=== PATIENT | female | born 1965 | race Caucasian/White ===

== ENCOUNTER 2023-05-03 23:35 | Emergency (ER) | payer SELFPAY ==
[~2023-05-03] VITALS: Ht 157.5 cm; Wt 72.1 kg
[2023-05-03 23:44] VITALS: TEMP 97.9
[2023-05-03] MEDS ORDERED: ONDANSETRON HCL/PF 4 MG/2 ML VIAL ONE (23:56)
[2023-05-03] MEDS ORDERED: MORPHINE SULFATE INJ 4 MG/ML DISP.SYRIN ONE (23:56)
[2023-05-04 00:03] LABS: BASOPHILS % (AUTO) 0.2 % (0.0-2.0); HEMATOCRIT 37 % (33-45); HEMOGLOBIN 12.9 g/dL (11.5-14.8); LYMPHOCYTES # (AUTO) 0.8 K/uL (0.8-4.8); LYMPHOCYTES % (AUTO) 9.2 % (20.0-44.0); MEAN CORPUSCULAR HEMOGLOBIN 31 PG (26.0-33.0); MEAN CORPUSCULAR HGB CONC 35 g/dl (31.0-36.0); MEAN CORPUSCULAR VOLUME 89 fL (82-100); MONOCYTES # (AUTO) 0.1 K/uL (0.1-1.30); MONOCYTES % (AUTO) 1.4 % (2.0-12.0); NEUTROPHILS # (AUTO) 7.8 K/uL (1.8-8.9); NEUTROPHILS % (AUTO) 89.2 % (43.0-81.0); PLATELET COUNT (AUTO) 163 K/uL (150-450); RED BLOOD CELL COUNT(AUTO) 4.17 MIL/uL (4.0-5.2); RED CELL DISTRIBUTION WIDTH 12.6 % (11.5-15.0); WHITE BLOOD COUNT (AUTO) 8.8 K/uL (4.3-11.0)
[2023-05-04] MEDS: MORPHINE SULFATE INJ 2 MG/ML DISP.SYRIN IV ONE (00:04)
[2023-05-04] MEDS: ONDANSETRON HCL/PF 4 MG/2 ML VIAL IV ONE (00:04)
[2023-05-04 00:11] LABS: CALCIUM, SERUM 9.3 mg/dL (8.5-10.1); CREATININE 0.9 mg/dL (0.6-1.3); POTASSIUM 4.2 mmol/L (3.5-5.1)
[2023-05-04] MEDS ORDERED: ONDA4TAB5 PO (02:06)
[2023-05-04 03:23] VITALS: BP 101/71; O2SAT 98
== END 2023-05-04 03:25 | disposition home or self-care (01) ==
LOC: ER 23:38
DX: R51.9 Headache, unspecified (principal); R11.2 Nausea with vomiting, unspecified
CPT/HCPCS: 99285; 70450; 71046; 74018; 70360; 85025; 80048; 36415; 84484; 96374; 96375; J2270; J2405

== ENCOUNTER 2023-05-19 22:48 | Emergency (ER) | payer MEDICAID ==
[~2023-05-19] VITALS: Ht 162.6 cm; Wt 70.3 kg
[~2023-05-19 22:48] MED LIST: ONDA4TAB5 PO
[2023-05-19] MEDS ORDERED: KETOROLAC TROMETHAMINE INJ 30 MG/ML VIAL ONE (23:33)
[2023-05-19] MEDS: KETOROLAC TROMETHAMINE INJ 60 MG/2 ML VIAL IM ONE (23:35)
[2023-05-20 02:18] VITALS: BP 123/73; TEMP 97; O2SAT 100
== END 2023-05-20 02:19 | disposition home or self-care (01) ==
LOC: ER 22:51
DX: M25.562 Pain in left knee (principal); Z79.899 Other long term (current) drug therapy
CPT/HCPCS: 99283; 96372; 73564; J1885

== ENCOUNTER 2024-04-24 22:37 | Inpatient (IN) | payer BC, MEDICAID, OTHER ==
[~2024-04-24] VITALS: Ht 152.4 cm; Wt 68.9 kg
[2024-04-24 23:26] VITALS: O2SAT 97
[2024-04-24] MEDS ORDERED: ACETAMINOPHEN ES 500 MG TABLET ONE (23:51)
[2024-04-24] MEDS ORDERED: METOCLOPRAMIDE HCL 10 MG/2 ML VIAL ONE (23:51)
[2024-04-24] MEDS ORDERED: IV NS 0.9% 250 ML IV ONE (23:52)
[2024-04-24] MEDS: IV NS 0.9% 1,000 ML BAG IV ONE (23:52)
[2024-04-24] MEDS: METOCLOPRAMIDE HCL 10 MG/2 ML VIAL IV ONE (23:52)
[2024-04-24] MEDS ORDERED: IOHEXOL-350 100 ML VIAL IV ONE (23:52)
[2024-04-24] MEDS: ACETAMINOPHEN ES 500 MG TABLET PO ONE (23:53)
[2024-04-25 00:27] LABS: BASOPHILS % (AUTO) 0.6 % (0.0-2.0); EOSINOPHILS # (AUTO) 0.3 K/uL (0.0-0.7); EOSINOPHILS % (AUTO) 5.1 % (0.0-6.0); HEMATOCRIT 37 % (33-45); HEMOGLOBIN 12.9 g/dL (11.5-14.8); LYMPHOCYTES # (AUTO) 2.8 K/uL (0.8-4.8); LYMPHOCYTES % (AUTO) 51.1 % (20.0-44.0); MEAN CORPUSCULAR HEMOGLOBIN 32 PG (26.0-33.0); MEAN CORPUSCULAR HGB CONC 35 g/dl (31.0-36.0); MEAN CORPUSCULAR VOLUME 92 fL (82-100); MONOCYTES # (AUTO) 0.3 K/uL (0.1-1.30); MONOCYTES % (AUTO) 6.2 % (2.0-12.0); PLATELET COUNT (AUTO) 121 K/uL (150-450); RED BLOOD CELL COUNT(AUTO) 4.05 MIL/uL (4.0-5.2); RED CELL DISTRIBUTION WIDTH 12.9 % (11.5-15.0); WHITE BLOOD COUNT (AUTO) 5.5 K/uL (4.3-11.0)
[2024-04-25 00:40] LABS: CREATININE 0.8 mg/dL (0.6-1.3); POTASSIUM 3.9 mmol/L (3.5-5.1)
[2024-04-25 00:47] LABS: ALBUMIN 3.8 g/dL (3.4-5.0); BILIRUBIN,DIRECT 0.1 mg/dL (0.0-0.2); BILIRUBIN,TOTAL 0.4 mg/dL (0.2-1.0); TOTAL PROTEIN, SERUM 7.5 g/dL (6.4-8.2)
[2024-04-25] MEDS ORDERED: MECLIZINE HCL 25 MG TABLET ONE (01:19)
[2024-04-25] MEDS: MECLIZINE HCL 25 MG TABLET PO ONE (01:25)
[2024-04-25] MEDS ORDERED: hydrALAZINE HCL IV 20 MG VIAL IV PRN (03:00)
[2024-04-25] MEDS ORDERED: ONDANSETRON HCL/PF 4 MG/2 ML VIAL IVP PRN (03:00)
[2024-04-25] MEDS ORDERED: MORPHINE SULFATE INJ 2 MG/ML DISP.SYRIN IV PRN (03:00)
[2024-04-25] MEDS ORDERED: ACETAMINOPHEN 325 MG TABLET PO PRN (03:00)
[2024-04-25 03:50] VITALS: BP 108/78; TEMP 97.5; O2SAT 100
[2024-04-25 08:00] VITALS: BP 104/70; TEMP 97.7; O2SAT 98
[2024-04-25] MEDS ORDERED: ACET-73 PO (09:22)
[2024-04-25] MEDS: HEPARIN SODIUM, PORCINE 5000 UNITS/1 ML VIAL SQ SCH (09:33)
[2024-04-25] MEDS ORDERED: MECLIZINE HCL 25 MG TABLET PO SCH (21:00)
== END 2024-04-25 14:40 | disposition home or self-care (01) | DRG 111 ==
LOC: ER 22:42 → TELE 04-25 02:54 → MED 04-25 03:53
DX: H81.10 Benign paroxysmal vertigo, unspecified ear (principal); D69.6 Thrombocytopenia, unspecified; Z98.2 Presence of cerebrospinal fluid drainage device; Z86.69 Personal history of other diseases of the nervous system and sense organs; R79.89 Other specified abnormal findings of blood chemistry
CPT/HCPCS: 36415; 70450-TC; 70496-TC; 70498-TC; 80048-TC; 80076-TC; 85025-TC; G0378; J1644; J2765; J7030; J7050; J8597; Q9967

== ENCOUNTER 2024-06-13 00:36 | Emergency (ER) | payer BC ==
[~2024-06-13] VITALS: Ht 152.4 cm; Wt 63.5 kg
[~2024-06-13 00:36] MED LIST changes: +ACET-73 PO; -ONDA4TAB5 PO
[2024-06-13] MEDS: MORPHINE SULFATE INJ 2 MG/ML DISP.SYRIN IV ONE (02:00)
[2024-06-13] MEDS: ONDANSETRON HCL/PF 4 MG/2 ML VIAL IVP ONE (02:00)
[2024-06-13] MEDS: IV NS 0.9% 1,000 ML BAG IV ONE (02:00)
[2024-06-13] MEDS ORDERED: MORPHINE SULFATE INJ 4 MG/ML DISP.SYRIN ONE (02:12)
[2024-06-13] MEDS ORDERED: ONDANSETRON HCL/PF 4 MG/2 ML VIAL ONE (02:12)
[2024-06-13 02:27] LABS: CALCIUM, SERUM 9.1 mg/dL (8.5-10.1); CREATININE 0.8 mg/dL (0.6-1.3); POTASSIUM 3.7 mmol/L (3.5-5.1)
[2024-06-13 02:40] LABS: ALBUMIN 3.6 g/dL (3.4-5.0); BASOPHILS % (AUTO) 0.3 % (0.0-2.0); BILIRUBIN,DIRECT 0.2 mg/dL (0.0-0.2); BILIRUBIN,TOTAL 0.7 mg/dL (0.2-1.0); EOSINOPHILS # (AUTO) 0.2 K/uL (0.0-0.7); EOSINOPHILS % (AUTO) 1.6 % (0.0-6.0); HEMATOCRIT 40 % (33-45); HEMOGLOBIN 13.4 g/dL (11.5-14.8); LYMPHOCYTES # (AUTO) 2.2 K/uL (0.8-4.8); LYMPHOCYTES % (AUTO) 19.8 % (20.0-44.0); MEAN CORPUSCULAR HEMOGLOBIN 31 PG (26.0-33.0); MEAN CORPUSCULAR HGB CONC 34 g/dl (31.0-36.0); MEAN CORPUSCULAR VOLUME 91 fL (82-100); MONOCYTES # (AUTO) 0.6 K/uL (0.1-1.30); MONOCYTES % (AUTO) 5.8 % (2.0-12.0); NEUTROPHILS # (AUTO) 8.1 K/uL (1.8-8.9); NEUTROPHILS % (AUTO) 72.5 % (43.0-81.0); PLATELET COUNT (AUTO) 125 K/uL (150-450); RED CELL DISTRIBUTION WIDTH 12.8 % (11.5-15.0); TOTAL PROTEIN, SERUM 7.9 g/dL (6.4-8.2); WHITE BLOOD COUNT (AUTO) 11.1 K/uL (4.3-11.0)
[2024-06-13 02:46] LABS: APPEARANCE,URINE CLEAR (CLEAR); BILIRUBIN,URINE NEGATIVE (NEGATIVE); BLOOD, URINE NEGATIVE Ery/uL (NEGATIVE); COLOR,URINE YELLOW (YELLOW); KETONES,URINE NEGATIVE (NEGATIVE); LEUKOCYTE ESTERASE ,URINE NEGATIVE (NEGATIVE); NITRITE, URINE NEGATIVE (NEGATIVE); PROTEIN,URINE NEGATIVE (NEGATIVE); UGLUCOSE NEGATIVE (NEGATIVE); UROBILINOGEN,URINE 0.2 EU/dL (0.2)
[2024-06-13 10:28] VITALS: BP 112/86; TEMP 98.6; O2SAT 98
== END 2024-06-13 10:29 | disposition home or self-care (01) ==
LOC: ER 00:48
DX: K85.90 Acute pancreatitis without necrosis or infection, unspecified (principal); R10.32 Left lower quadrant pain; Z98.2 Presence of cerebrospinal fluid drainage device; Z79.899 Other long term (current) drug therapy
CPT/HCPCS: 99285; 74176; 96374; 76856; 96361; 96375; 93005; 85025; 80048; 83690; 80076; 81003; 36415; J2270; J2405

== ENCOUNTER 2024-11-16 01:02 | Emergency (ER) | payer BC, MEDICAID ==
[~2024-11-16] VITALS: Ht 152.4 cm; Wt 67.1 kg
[2024-11-16 01:39] VITALS: BP 96/67; TEMP 98.5; O2SAT 95
[2024-11-16] MEDS ORDERED: IBUP-1955 PO (01:53)
[2024-11-16] MEDS ORDERED: DIAZ5TAB PO (01:53)
[2024-11-16] MEDS ORDERED: ACET-3102 PO (01:53)
[2024-11-16] MEDS ORDERED: ACETAMINOPHEN ES 500 MG TABLET ONE (01:59)
[2024-11-16] MEDS ORDERED: DIAZEPAM 5 MG TABLET ONE (01:59)
[2024-11-16] MEDS ORDERED: IBUPROFEN 600 MG TABLET ONE (02:00)
[2024-11-16] MEDS: DIAZEPAM 5 MG TABLET PO ONE (02:09)
[2024-11-16] MEDS: ACETAMINOPHEN ES 500 MG TABLET PO ONE (02:09)
[2024-11-16] MEDS: IBUPROFEN 600 MG TABLET PO ONE (02:09)
== END 2024-11-16 02:34 | disposition home or self-care (01) ==
LOC: ER 01:07
DX: M54.50 Low back pain, unspecified (principal); E78.5 Hyperlipidemia, unspecified
CPT/HCPCS: 72110-TC